=== PATIENT | female | born 1995 | race Caucasian/White ===

== ENCOUNTER 2020-12-05 18:20 | Emergency (ER) | payer OTHER ==
[~2020-12-05] VITALS: Ht 167.6 cm; Wt 67.1 kg
--- NOTE | 2020-12-05 18:53 | NUR ---
DR PURCELL AT THE BEDSIDE
--- NOTE | 2020-12-05 19:04 | NUR ---
STARTED RAC G 20, BLOOD SPECIMEN COLLECTED AND SENT TO THE LAB. THE LINE IS SALINE LOCKED.
--- NOTE | 2020-12-05 19:05 | NUR ---
THE PATIENT STATED "I TOOK PLAN BE 3-4 WEEKS AGO WHEN I WAS ALREADY ". TAQUERIA BOLDEN MADE AWARE.
--- NOTE | 2020-12-05 19:05 | NUR ---
US TECH AT THE BEDSIDE
[2020-12-05 19:07] LABS: BASOPHILS % (AUTO) 0.2 % (0.0-2.0); EOSINOPHILS % (AUTO) 0.5 % (0.0-6.0); HEMATOCRIT 39 % (33-45); HEMOGLOBIN 12.6 g/dL (11.5-14.8); LYMPHOCYTES # (AUTO) 2.1 K/uL (0.8-4.8); LYMPHOCYTES % (AUTO) 47.7 % (20.0-44.0); MEAN CORPUSCULAR HGB CONC 32 g/dl (31.0-36.0); MEAN CORPUSCULAR VOLUME 77 fL (82-100); MONOCYTES # (AUTO) 0.4 K/uL (0.1-1.30); MONOCYTES % (AUTO) 8.6 % (2.0-12.0); NEUTROPHILS # (AUTO) 1.9 K/uL (1.8-8.9); PLATELET COUNT (AUTO) 216 K/uL (150-450); RED BLOOD CELL COUNT(AUTO) 5.13 MIL/uL (4.0-5.2); WHITE BLOOD COUNT (AUTO) 4.5 K/uL (4.3-11.0)
--- NOTE | 2020-12-05 19:08 | NUR ---
URINE COLLECTED AND SENT TO THE LAB
[2020-12-05 19:20] LABS: CALCIUM, SERUM 8.9 mg/dL (8.5-10.1); CREATININE 0.7 mg/dL (0.6-1.3); POTASSIUM 3.4 mmol/L (3.5-5.1)
--- NOTE | 2020-12-05 19:25 | NUR ---
REPORT GIVEN TO NURSE GADIEL
[2020-12-05 19:28] LABS: BILIRUBIN,URINE Negative (NEGATIVE); COLOR,URINE YELLOW (YELLOW); LEUKOCYTE ESTERASE ,URINE Negative (NEGATIVE); NITRITE, URINE Negative (NEGATIVE); PROTEIN,URINE Negative (NEGATIVE); UGLUCOSE Negative (NEGATIVE); UROBILINOGEN,URINE 0.2 EU/dL (0.2)
[2020-12-05 19:55] VITALS: BP 111/68
--- NOTE | 2020-12-05 19:55 | NUR ---
Patient discharged to home in stable condition. Written and verbal after care instructions given. Patient verbalizes understanding of instruction.
== END 2020-12-05 19:55 | disposition home or self-care (01) ==
LOC: ER 18:26
DX: O20.0 Threatened abortion (principal)
CPT/HCPCS: 36415; 76805-TC; 80048-TC; 84702-TC; 85025-TC; 85730-TC; 87086-TC